=== PATIENT | male | born 1965 | race Caucasian/White ===

== ENCOUNTER 2020-07-26 11:40 | Inpatient (IN) | payer SELFPAY ==
[~2020-07-26] VITALS: Ht 182.9 cm; Wt 98.9 kg
[~2020-07-26 11:40] MED LIST: ASPIRIN81 MG PO; DIOVAN160 MG PO; HYDROCHLOROTHIA25 MG PO; LEVAQUIN500 MG PO; METOPROLOL TART25 MG PO; PROPRANOLOL HCL60 M1 PO
[2020-07-26 12:07] LABS: BASOPHILS # (AUTO) 0.1 (0.0-0.1); EOSINOPHILS # (AUTO) 0.2 (0.0-0.4); EOSINOPHILS % 2.5 % (0.0-6.0); HEMATOCRIT 43.5 % (38.2-49.6); HEMOGLOBIN 15.3 g/dL (14.0-18.0); LYMPHOCYTES # (AUTO) 2.6 (1.0-3.2); LYMPHOCYTES % 41.9 % (18.0-39.1); MEAN CORPUSCULAR HEMOGLOBIN 35.5 pg (28-32); MEAN CORPUSCULAR HGB CONC 35.2 g/dL (31-35); MEAN CORPUSCULAR VOLUME 100.9 fL (81-99); MONOCYTES % 15.9 % (4.4-11.3); NEUTROPHILS # (AUTO) 2.4 (2.1-6.9); NEUTROPHILS % 38.4 % (38.7-80.0); PLATELET COUNT 245 x10e3/uL (140-360); RED BLOOD COUNT 4.31 x10e6/uL (4.3-5.7); RED CELL DISTRIBUTION WIDTH 13.4 % (11.7-14.4)
[2020-07-26] MEDS: CLINDAMYCIN 600MG / 50ML 50 ML IV SCH ×2 (12:10→19:01)
[2020-07-26 13:07] LABS: ALANINE AMINOTRANSFERASE 21 IU/L (0-55); ALBUMIN 3.6 g/dL (3.5-5.0); ALBUMIN/GLOBULIN RATIO 1.2 (0.8-2.0); ALKALINE PHOSPHATASE 80 IU/L (40-150); ANION GAP 15.1 mmol/L (8-16); BLOOD UREA NITROGEN < 5 mg/dL (7-26); CALCIUM 8.3 mg/dL (8.4-10.2); CARBON DIOXIDE 23 mmol/L (22-29); CHLORIDE 97 mmol/L (98-107); CREATININE, SERUM 0.75 mg/dL (0.72-1.25); EST GLOMERULAR FILTRATION RATE > 60 ML/MIN (60-); GLUCOSE 60 mg/dL (74-118); POTASSIUM 4.1 mmol/L (3.5-5.1); SODIUM 131 mmol/L (136-145)
[2020-07-26 13:09] LABS: BUN/CREATININE RATIO 7 (6-25)
[2020-07-26] MEDS ORDERED: ONDANSETRON HCL INJ 2MG/ML 2ML 2 MG/ML VIAL IV PRN (13:15)
[2020-07-26] MEDS ORDERED: MORPHINE SULFATE INJ 2 MG/ML SYR IV PRN (13:15)
[2020-07-26] MEDS ORDERED: DEXTROSE 50% SYRINGE 50 ML IV PRN (13:30)
[2020-07-26] MEDS ORDERED: HYDRALAZINE HCL 20 MG/ML VIAL IV PRN (13:30)
[2020-07-26] MEDS ORDERED: BENZONATATE 100 MG CAP PO PRN (13:30)
[2020-07-26] MEDS ORDERED: DOCUSATE SODIUM 100 MG CAP PO PRN (13:30)
[2020-07-26] MEDS ORDERED: ACETAMINOPHEN 325 MG TAB PO PRN (13:30)
[2020-07-26] MEDS ORDERED: HYDROCODONE/APAP 5MG-325MG TAB PO PRN (13:30)
[2020-07-26] MEDS ORDERED: POTASSIUM CHLORIDE 20 MEQ TAB CR PO PRN (13:30)
[2020-07-26] MEDS ORDERED: DIPHENHYDRAMINE HCL 25 MG CAP PO PRN (13:30)
[2020-07-26] MEDS ORDERED: POLYETHYLENE GLYCOL 3350 17 GM PACK PO PRN (13:30)
[2020-07-26] MEDS ORDERED: CHLORASEPTIC SPRAY 177 ML BTL MM PRN (13:30)
[2020-07-26] MEDS: SODIUM CHLORIDE 0.9% 1000ML 1,000 ML IV SCH ×2 (14:18→21:16)
[2020-07-26] MEDS: KETOROLAC TROMETHAMINE 30 MG/ML VIAL IV SCH ×2 (14:18→18:56)
[2020-07-26 17:03] VITALS: BP 154/77
[2020-07-26 17:28] VITALS: BP 154/77
[2020-07-26 17:53] VITALS: BP 154/77
[2020-07-26] MEDS ORDERED: LISINOPRIL10 MG PO (17:57)
[2020-07-26] MEDS ORDERED: OXTELLAR XR300 MG PO (17:57)
[2020-07-26] MEDS ORDERED: LAMOTRIGINE100 MG PO (17:57)
[2020-07-26] MEDS: ENOXAPARIN SOD INJ 40 MG/0.4 ML SYR SC SCH (18:53)
[2020-07-26 20:00] VITALS: BP 144/75
[2020-07-26 21:00] VITALS: BP 144/75
[2020-07-26] MEDS ORDERED: MELATONIN 5 MG TABLET PO PRN (21:00)
[2020-07-26] MEDS: LAMOTRIGINE 100 MG TAB PO SCH (21:55)
[2020-07-27] VITALS (8 sets, daily range): BP systolic 144–185; BP diastolic 57–93
[2020-07-27] MEDS: CLINDAMYCIN 600MG / 50ML 50 ML IV SCH ×5 (00:15→23:45)
[2020-07-27] MEDS: KETOROLAC TROMETHAMINE 30 MG/ML VIAL IV SCH ×4 (00:15→18:10)
[2020-07-27 05:36] LABS: BASOPHILS # (AUTO) 0.1 (0.0-0.1); BASOPHILS % 1.4 % (0.0-1.0); EOSINOPHILS # (AUTO) 0.2 (0.0-0.4); HEMATOCRIT 37.4 % (38.2-49.6); HEMOGLOBIN 13.2 g/dL (14.0-18.0); LYMPHOCYTES # (AUTO) 2.4 (1.0-3.2); LYMPHOCYTES % 40.9 % (18.0-39.1); MEAN CORPUSCULAR HEMOGLOBIN 34.5 pg (28-32); MEAN CORPUSCULAR HGB CONC 35.3 g/dL (31-35); MEAN CORPUSCULAR VOLUME 97.7 fL (81-99); MONOCYTES # (AUTO) 0.9 (0.2-0.8); MONOCYTES % 15.2 % (4.4-11.3); NEUTROPHILS # (AUTO) 2.3 (2.1-6.9); NEUTROPHILS % 39.2 % (38.7-80.0); PLATELET COUNT 253 x10e3/uL (140-360); RED BLOOD COUNT 3.83 x10e6/uL (4.3-5.7); RED CELL DISTRIBUTION WIDTH 13.1 % (11.7-14.4)
[2020-07-27] MEDS: SODIUM CHLORIDE 0.9% 1000ML 1,000 ML IV SCH ×3 (05:53→21:15)
[2020-07-27 06:00] LABS: ALANINE AMINOTRANSFERASE 16 IU/L (0-55); ALBUMIN 3.1 g/dL (3.5-5.0); ALBUMIN/GLOBULIN RATIO 1.1 (0.8-2.0); ALKALINE PHOSPHATASE 69 IU/L (40-150); BLOOD UREA NITROGEN 6 mg/dL (7-26); BUN/CREATININE RATIO 8 (6-25); CARBON DIOXIDE 22 mmol/L (22-29); CHLORIDE 105 mmol/L (98-107); CREATININE, SERUM 0.74 mg/dL (0.72-1.25); EST GLOMERULAR FILTRATION RATE > 60 ML/MIN (60-); GLUCOSE 86 mg/dL (74-118); SODIUM 135 mmol/L (136-145)
[2020-07-27] MEDS: OXCARBAZEPINE PO SCH ×2 (09:00→18:09)
[2020-07-27] MEDS ORDERED: PROPRANOLOL HCL 60 MG PO SCH (09:00)
[2020-07-27] MEDS: PANTOPRAZOLE SOD 40 MG TABEC PO SCH (10:06)
[2020-07-27] MEDS: LAMOTRIGINE 100 MG TAB PO SCH ×2 (10:07→18:09)
[2020-07-27] MEDS: PROPRANOLOL HCL 60 MG ER CAP PO SCH (10:07)
[2020-07-27] MEDS ORDERED: LISINOPRIL 20 MG TAB PO NR (13:00)
[2020-07-27] MEDS ORDERED: LISINOPRIL 20 MG TAB ONE (13:08)
[2020-07-27] MEDS: ENOXAPARIN SOD INJ 40 MG/0.4 ML SYR SC SCH (18:09)
[2020-07-28] VITALS: BP 177/97
[2020-07-28 04:00] VITALS: BP 178/93
[2020-07-28] MEDS: SODIUM CHLORIDE 0.9% 1000ML 1,000 ML IV SCH (05:15)
[2020-07-28 08:08] VITALS: BP 171/95
[2020-07-28] MEDS: OXCARBAZEPINE PO SCH (08:33)
[2020-07-28] MEDS: PANTOPRAZOLE SOD 40 MG TABEC PO SCH (08:33)
[2020-07-28] MEDS: PROPRANOLOL HCL 60 MG ER CAP PO SCH (08:34)
[2020-07-28] MEDS: LAMOTRIGINE 100 MG TAB PO SCH (08:34)
[2020-07-28] MEDS ORDERED: LISINOPRIL 20 MG TAB PO SCH (09:00)
[2020-07-28 11:33] VITALS: BP 180/98
[2020-07-28] MEDS: CLINDAMYCIN 600MG / 50ML 50 ML IV SCH (11:44)
[2020-07-28] MEDS ORDERED: CLONIDINE HCL 0.3 MG TAB PO NR (13:00)
[2020-07-28] MEDS ORDERED: HYDRALAZINE HCL 10 MG TAB ONE (13:06)
[2020-07-28] MEDS ORDERED: CLINDAMYCIN HC150 MG PO (14:13)
[2020-07-28] MEDS ORDERED: CLEOCIN HCL300 MG PO (14:13)
== END 2020-07-28 14:35 | disposition home or self-care (01) | DRG 603 ==
LOC: ER 11:47 → ERHOLD 13:19 → MED/SURG2 16:45
PROVIDERS: ADMIT Internal Medicine; ATTEND Internal Medicine
DX: L03.116 Cellulitis of left lower limb (principal); I10 Essential (primary) hypertension; R25.1 Tremor, unspecified; R53.81 Other malaise; Z88.0 Allergy status to penicillin; Z88.8 Allergy status to other drugs, medicaments and biological substances; Z20.822 Contact with and (suspected) exposure to COVID-19
CPT/HCPCS: 36415; 80053; 85025; 93970; 99284; J1650; J1885; J7030; U0002

== ENCOUNTER 2020-11-08 19:53 | Emergency (ER) | payer SELFPAY ==
[~2020-11-08] VITALS: Ht 182.9 cm; Wt 98.9 kg
[~2020-11-08 19:53] MED LIST changes: +CLEOCIN HCL300 MG PO; +CLINDAMYCIN HC150 MG PO; +LAMOTRIGINE100 MG PO; +LISINOPRIL10 MG PO; +OXTELLAR XR300 MG PO
[2020-11-08 20:45] LABS: BASOPHILS # (AUTO) 0.1 (0.0-0.1); BASOPHILS % 0.6 % (0.0-1.0); EOSINOPHILS # (AUTO) 0.1 (0.0-0.4); EOSINOPHILS % 1.3 % (0.0-6.0); HEMATOCRIT 39.8 % (38.2-49.6); HEMOGLOBIN 14.7 g/dL (14.0-18.0); LYMPHOCYTES # (AUTO) 2.1 (1.0-3.2); LYMPHOCYTES % 26.8 % (18.0-39.1); MEAN CORPUSCULAR HEMOGLOBIN 34.8 pg (28-32); MEAN CORPUSCULAR HGB CONC 36.9 g/dL (31-35); MEAN CORPUSCULAR VOLUME 94.1 fL (81-99); MONOCYTES # (AUTO) 1.1 (0.2-0.8); MONOCYTES % 13.3 % (4.4-11.3); NEUTROPHILS # (AUTO) 4.6 (2.1-6.9); NEUTROPHILS % 57.5 % (38.7-80.0); PLATELET COUNT 206 x10e3/uL (140-360); RED BLOOD COUNT 4.23 x10e6/uL (4.3-5.7); RED CELL DISTRIBUTION WIDTH 12.5 % (11.7-14.4)
[2020-11-08 21:07] LABS: ALANINE AMINOTRANSFERASE 41 IU/L (0-55); ALBUMIN 3.5 g/dL (3.5-5.0); ALBUMIN/GLOBULIN RATIO 1.2 (0.8-2.0); ALKALINE PHOSPHATASE 105 IU/L (40-150); ANION GAP 15.3 mmol/L (8-16); BLOOD UREA NITROGEN < 5 mg/dL (7-26); CALCIUM 8.8 mg/dL (8.4-10.2); CARBON DIOXIDE 21 mmol/L (22-29); CHLORIDE 91 mmol/L (98-107); CREATININE, SERUM 0.72 mg/dL (0.72-1.25); EST GLOMERULAR FILTRATION RATE 114 ML/MIN (60-); GLUCOSE 94 mg/dL (74-118); POTASSIUM 4.3 mmol/L (3.5-5.1); SODIUM 123 mmol/L (136-145)
[2020-11-08 21:10] LABS: BUN/CREATININE RATIO 7 (6-25)
[2020-11-08] MEDS ORDERED: SODIUM CHLORIDE 0.9% 1000ML 1,000 ML IV SCH ×2 (21:45)
== END 2020-11-08 23:15 | disposition home or self-care (01) ==
LOC: ER 20:20
DX: R07.89 Other chest pain (principal); E87.1 Hypo-osmolality and hyponatremia; I10 Essential (primary) hypertension; I25.10 Atherosclerotic heart disease of native coronary artery without angina pectoris; G40.909 Epilepsy, unspecified, not intractable, without status epilepticus; I73.9 Peripheral vascular disease, unspecified
CPT/HCPCS: 36415; 71045; 80053; 84484; 85025; 99283; J7030

== ENCOUNTER 2021-04-06 18:16 | Inpatient (IN) | payer SELFPAY ==
[~2021-04-06] VITALS: Ht 182.9 cm; Wt 96.6 kg
[2021-04-06 18:58] LABS: BASOPHILS % 0.5 % (0.0-1.0); HEMATOCRIT 47.8 % (38.2-49.6); LYMPHOCYTES # (AUTO) 1.3 (1.0-3.2); LYMPHOCYTES % 16.1 % (18.0-39.1); MEAN CORPUSCULAR HEMOGLOBIN 34.7 pg (28-32); MEAN CORPUSCULAR HGB CONC 35.6 g/dL (31-35); MEAN CORPUSCULAR VOLUME 97.6 fL (81-99); MONOCYTES # (AUTO) 1.3 (0.2-0.8); MONOCYTES % 15.5 % (4.4-11.3); NEUTROPHILS # (AUTO) 5.5 (2.1-6.9); NEUTROPHILS % 67.4 % (38.7-80.0); PLATELET COUNT 185 x10e3/uL (140-360); RED CELL DISTRIBUTION WIDTH 12.7 % (11.7-14.4)
[2021-04-06 19:19] LABS: ALBUMIN 3.9 g/dL (3.5-5.0); ANION GAP 18.4 mmol/L (8-16); CALCIUM 8.9 mg/dL (8.4-10.2); CREATININE, SERUM 2.26 mg/dL (0.72-1.25); POTASSIUM 4.4 mmol/L (3.5-5.1)
[2021-04-06 19:24] LABS: B-TYPE NATRIURETIC PEPTIDE2 34.4 pg/mL (0-100)
[2021-04-06] MEDS ORDERED: SODIUM CHLORIDE 0.9% 1000ML 1,000 ML IV STA (19:24)
[2021-04-06] MEDS: LEVOFLOXACIN 750MG/D5W 150ML 150 ML IV SCH (19:30)
[2021-04-06] MEDS ORDERED: Morphine 4mg Syringe 4 MG/ML INJ IV PRN (20:15)
[2021-04-06] MEDS ORDERED: ONDANSETRON HCL INJ 2MG/ML 2ML 2 MG/ML VIAL IV PRN (20:15)
[2021-04-06] MEDS ORDERED: SODIUM CHLORIDE 0.9% 1000ML 1,000 ML IV SCH (20:15)
[2021-04-06] MEDS ORDERED: DIATRIZOATE MEGL/DIATRIZOA SOD 30 ML BTL PO ONE (20:31)
[2021-04-06 21:48] LABS: CLARITY,URINE SL CLOUDY (CLEAR); COLOR,URINE YELLOW (YELLOW); KETONES,URINE 1+ (NEGATIVE); LEUKOCYTE ESTERASE ,URINE NEGATIVE (NEGATIVE); NITRITE,URINE NEGATIVE (NEGATIVE); PROTEIN,URINE DIPSTICK 2+ (NEGATIVE); URINE UROBILINOGEN 0.2 mg/dL (0.2 - 1)
[2021-04-06 22:00] LABS: WBC,URINE (MAN) 21-50 /HPF (0-5)
[2021-04-06 22:01] LABS: BACTERIA,URINE MANY /HPF; EPITHELIAL CELLS,URINE FEW /LPF; RBC,URINE 21-50 /HPF (0-5)
[2021-04-07] MEDS ORDERED: ACETAMINOPHEN 325 MG TAB PO PRN (01:00)
[2021-04-07] MEDS ORDERED: MELATONIN 5 MG TABLET PO PRN (01:00)
[2021-04-07] MEDS ORDERED: DEXTROSE 50% SYRINGE 50 ML IV PRN (01:00)
[2021-04-07] MEDS ORDERED: POTASSIUM CHLORIDE 20 MEQ TAB CR PO PRN (01:00)
[2021-04-07] MEDS ORDERED: HYDRALAZINE HCL 20 MG/ML VIAL IV PRN (01:00)
[2021-04-07] MEDS ORDERED: DIPHENHYDRAMINE HCL 25 MG CAP PO PRN (01:00)
[2021-04-07] MEDS ORDERED: SIMETHICONE 80 MG CHEW PO PRN (01:00)
[2021-04-07] MEDS ORDERED: ONDANSETRON HCL INJ 2MG/ML 2ML 2 MG/ML VIAL IV PRN (01:00)
[2021-04-07] MEDS ORDERED: DOCUSATE SODIUM 100 MG CAP PO PRN (01:00)
[2021-04-07] MEDS ORDERED: LIDOCAINE 4% PATCH TP PRN (01:00)
[2021-04-07 01:56] LABS: CREATINE KINASE MB 2.3 ng/mL (0-5.0)
[2021-04-07 06:34] LABS: ALBUMIN 3.2 g/dL (3.5-5.0); ANION GAP 14.7 mmol/L (8-16); CALCIUM 8.3 mg/dL (8.4-10.2); CREATININE, SERUM 1.4 mg/dL (0.72-1.25); POTASSIUM 4.7 mmol/L (3.5-5.1)
[2021-04-07 06:36] LABS: CREATINE KINASE MB 1.4 ng/mL (0-5.0)
[2021-04-07] MEDS: PANTOPRAZOLE SOD 40 MG TABEC PO SCH (07:28)
[2021-04-07 07:59] LABS: BASOPHILS % 0.4 % (0.0-1.0); EOSINOPHILS % 0.1 % (0.0-6.0); LYMPHOCYTES # (AUTO) 1.8 (1.0-3.2); LYMPHOCYTES % 21.1 % (18.0-39.1); MEAN CORPUSCULAR HEMOGLOBIN 34.5 pg (28-32); MEAN CORPUSCULAR HGB CONC 35.7 g/dL (31-35); MEAN CORPUSCULAR VOLUME 96.6 fL (81-99); MONOCYTES # (AUTO) 1.1 (0.2-0.8); MONOCYTES % 12.9 % (4.4-11.3); NEUTROPHILS # (AUTO) 5.5 (2.1-6.9); PLATELET COUNT 185 x10e3/uL (140-360); RED BLOOD COUNT 4.35 x10e6/uL (4.3-5.7); RED CELL DISTRIBUTION WIDTH 12.4 % (11.7-14.4)
[2021-04-07 12:25] VITALS: BP 153/95
[2021-04-07] MEDS ORDERED: KEPPRA250 MG PO (12:33)
[2021-04-07 12:36] VITALS: BP 153/95
[2021-04-07 12:43] VITALS: BP 153/95
[2021-04-07] MEDS ORDERED: LEVETIRACETAM 500 MG PO SCH (13:45)
[2021-04-07] MEDS ORDERED: PROPRANOLOL HCL 40 MG PO SCH (13:45)
[2021-04-07] MEDS: BENZONATATE 100 MG CAP PO PRN ×2 (14:00→23:52)
[2021-04-07] MEDS: ASPIRIN 81 MG CHEW TAB PO SCH (14:00)
[2021-04-07] MEDS: LEVETIRACETAM 500 MG TAB PO SCH ×2 (14:00→21:52)
[2021-04-07] MEDS ORDERED: PROPRANOLOL HCL 40 MG TAB PO SCH (14:30)
[2021-04-07] MEDS ORDERED: LISINOPRIL 20 MG TAB PO SCH (14:30)
[2021-04-07] MEDS ORDERED: OXCARBAZEPINE 300 MG PO SCH (15:00)
[2021-04-07] MEDS: LISINOPRIL 20 MG TAB PO SCH (15:20)
[2021-04-07] MEDS: PROPRANOLOL HCL 40 MG TAB PO SCH ×2 (15:20→21:58)
[2021-04-07 16:08] VITALS: BP 123/76
[2021-04-07] MEDS: OXCARBAZEPINE 300 MG PO SCH ×2 (16:30→21:00)
[2021-04-07] MEDS: ENOXAPARIN SOD INJ 40 MG/0.4 ML SYR SC SCH (17:00)
[2021-04-07] MEDS: ALBUTEROL/IPRATROPIUM 3 ML NEB NEB PRN (18:48)
[2021-04-07 20:00] VITALS: BP 105/57
[2021-04-07 21:50] VITALS: BP 105/57
[2021-04-07] MEDS: LEVOFLOXACIN 750MG/D5W 150ML 150 ML IV SCH (21:51)
[2021-04-08] VITALS (8 sets, daily range): BP systolic 100–130; BP diastolic 55–85
[2021-04-08] MEDS ORDERED: SODIUM CHLORIDE 1 GM TAB PO ONE (01:30)
[2021-04-08 05:20] LABS: BASOPHILS % 0.6 % (0.0-1.0); EOSINOPHILS % 0.1 % (0.0-6.0); HEMATOCRIT 40.7 % (38.2-49.6); HEMOGLOBIN 14.5 g/dL (14.0-18.0); LYMPHOCYTES # (AUTO) 1.7 (1.0-3.2); LYMPHOCYTES % 22.9 % (18.0-39.1); MEAN CORPUSCULAR HEMOGLOBIN 34.5 pg (28-32); MEAN CORPUSCULAR HGB CONC 35.6 g/dL (31-35); MEAN CORPUSCULAR VOLUME 96.9 fL (81-99); MONOCYTES # (AUTO) 0.9 (0.2-0.8); MONOCYTES % 12.3 % (4.4-11.3); NEUTROPHILS # (AUTO) 4.6 (2.1-6.9); NEUTROPHILS % 63.7 % (38.7-80.0); PLATELET COUNT 100 x10e3/uL (140-360); RED CELL DISTRIBUTION WIDTH 12.4 % (11.7-14.4)
[2021-04-08 05:41] LABS: ANION GAP 14.8 mmol/L (8-16); CALCIUM 7.9 mg/dL (8.4-10.2); CREATININE, SERUM 0.81 mg/dL (0.72-1.25); MAGNESIUM 1.9 MG/DL (1.3-2.1); POTASSIUM 4.8 mmol/L (3.5-5.1)
[2021-04-08] MEDS: OXCARBAZEPINE 300 MG PO SCH ×2 (09:00→20:47)
[2021-04-08] MEDS: ASPIRIN 81 MG CHEW TAB PO SCH (09:15)
[2021-04-08] MEDS: PANTOPRAZOLE SOD 40 MG TABEC PO SCH (09:15)
[2021-04-08] MEDS: LISINOPRIL 20 MG TAB PO SCH (09:16)
[2021-04-08] MEDS: PROPRANOLOL HCL 40 MG TAB PO SCH ×2 (09:16→20:47)
[2021-04-08] MEDS: LEVETIRACETAM 500 MG TAB PO SCH ×2 (09:16→20:47)
[2021-04-08] MEDS: ENOXAPARIN SOD INJ 40 MG/0.4 ML SYR SC SCH (17:36)
[2021-04-08] MEDS: SODIUM CHLORIDE 1 GM TAB PO SCH (17:36)
[2021-04-08] MEDS: BENZONATATE 100 MG CAP PO PRN (17:38)
[2021-04-08] MEDS: LEVOFLOXACIN 500 MG TAB PO SCH (20:38)
[2021-04-09] VITALS (7 sets, daily range): BP systolic 123–154; BP diastolic 64–90
[2021-04-09 05:01] LABS: BASOPHILS % 0.4 % (0.0-1.0); EOSINOPHILS % 0.4 % (0.0-6.0); HEMATOCRIT 39.5 % (38.2-49.6); HEMOGLOBIN 13.7 g/dL (14.0-18.0); LYMPHOCYTES # (AUTO) 1.7 (1.0-3.2); LYMPHOCYTES % 23.4 % (18.0-39.1); MEAN CORPUSCULAR HEMOGLOBIN 34.3 pg (28-32); MEAN CORPUSCULAR HGB CONC 34.7 g/dL (31-35); MEAN CORPUSCULAR VOLUME 98.8 fL (81-99); MONOCYTES # (AUTO) 0.8 (0.2-0.8); MONOCYTES % 11.2 % (4.4-11.3); NEUTROPHILS # (AUTO) 4.6 (2.1-6.9); NEUTROPHILS % 64.2 % (38.7-80.0); PLATELET COUNT 174 x10e3/uL (140-360); RED CELL DISTRIBUTION WIDTH 12.2 % (11.7-14.4)
[2021-04-09 05:18] LABS: ANION GAP 13.9 mmol/L (8-16); CALCIUM 8.3 mg/dL (8.4-10.2); CREATININE, SERUM 0.68 mg/dL (0.72-1.25); POTASSIUM 3.9 mmol/L (3.5-5.1)
[2021-04-09] MEDS: PANTOPRAZOLE SOD 40 MG TABEC PO SCH (07:30)
[2021-04-09] MEDS: LEVETIRACETAM 500 MG TAB PO SCH ×2 (09:00→20:55)
[2021-04-09] MEDS: OXCARBAZEPINE 300 MG PO SCH ×2 (10:32→21:00)
[2021-04-09] MEDS: ASPIRIN 81 MG CHEW TAB PO SCH (10:32)
[2021-04-09] MEDS: SODIUM CHLORIDE 1 GM TAB PO SCH ×2 (10:34→17:00)
[2021-04-09] MEDS: PROPRANOLOL HCL 40 MG TAB PO SCH ×2 (10:34→20:55)
[2021-04-09] MEDS: LISINOPRIL 20 MG TAB PO SCH (10:34)
[2021-04-09] MEDS: ALBUTEROL/IPRATROPIUM 3 ML NEB NEB PRN ×2 (15:02→20:43)
[2021-04-09] MEDS ORDERED: METHYLPREDNISOLONE SOD SUCC 125 MG/2ML VIAL IV ONE (15:45)
[2021-04-09] MEDS ORDERED: SODIUM CHLORIDE 0.9% 50ML 50 ML ONE (16:14)
[2021-04-09] MEDS ORDERED: IOPAMIDOL 370 MG/ML 200 ML INFUS..BTL INJ ONE (16:14)
[2021-04-09] MEDS ORDERED: FUROSEMIDE INJ 10 MG/ML 2 ML VIAL IV ONE (16:15)
[2021-04-09] MEDS: ENOXAPARIN SOD INJ 40 MG/0.4 ML SYR SC SCH (17:00)
[2021-04-09] MEDS ORDERED: ONDANSETRON HCL 4 MG ORAL DISINTEGRATING TAB PO PRN (17:45)
[2021-04-09] MEDS: DOXYCYCLINE HYCLATE 100 MG in SODIUM CHLORIDE 0.9% 100 ML 100 ML IV SCH ×2 (18:00→20:54)
[2021-04-09] MEDS: LEVOFLOXACIN 500 MG TAB PO SCH (19:02)
[2021-04-09] MEDS: BENZONATATE 100 MG CAP PO PRN (19:31)
[2021-04-09] MEDS: METHYLPREDNISOLONE SOD SUCC 40 MG/ML VIAL 1ML IV SCH (20:55)
[2021-04-10] VITALS (7 sets, daily range): BP systolic 133–174; BP diastolic 74–89
[2021-04-10] MEDS: ALBUTEROL/IPRATROPIUM 3 ML NEB NEB PRN ×4 (00:40→19:55)
[2021-04-10 05:24] LABS: ANION GAP 16.1 mmol/L (8-16); CALCIUM 8.7 mg/dL (8.4-10.2); CREATININE, SERUM 0.64 mg/dL (0.72-1.25); POTASSIUM 4.1 mmol/L (3.5-5.1)
[2021-04-10] MEDS: DOXYCYCLINE HYCLATE 100 MG in SODIUM CHLORIDE 0.9% 100 ML 100 ML IV SCH (05:48)
[2021-04-10] MEDS: METHYLPREDNISOLONE SOD SUCC 40 MG/ML VIAL 1ML IV SCH ×2 (08:25→21:38)
[2021-04-10] MEDS: PANTOPRAZOLE SOD 40 MG TABEC PO SCH (08:25)
[2021-04-10] MEDS: OXCARBAZEPINE 300 MG PO SCH ×2 (08:25→21:38)
[2021-04-10] MEDS: ASPIRIN 81 MG CHEW TAB PO SCH (08:25)
[2021-04-10] MEDS: LEVETIRACETAM 500 MG TAB PO SCH ×2 (08:31→21:39)
[2021-04-10] MEDS: PROPRANOLOL HCL 40 MG TAB PO SCH ×2 (08:31→21:39)
[2021-04-10] MEDS: LISINOPRIL 20 MG TAB PO SCH (08:31)
[2021-04-10] MEDS: SODIUM CHLORIDE 1 GM TAB PO SCH ×2 (08:32→18:03)
[2021-04-10] MEDS: BENZONATATE 100 MG CAP PO PRN (14:42)
[2021-04-10] MEDS: DOXYCYCLINE HYCLATE 100 MG in SODIUM CHLORIDE 0.9% 100 ML IV SCH (18:03)
[2021-04-10] MEDS: ENOXAPARIN SOD INJ 40 MG/0.4 ML SYR SC SCH (18:03)
[2021-04-10] MEDS: LEVOFLOXACIN 500 MG TAB PO SCH (21:38)
[2021-04-11] MEDS: ALBUTEROL/IPRATROPIUM 3 ML NEB NEB PRN ×2 (00:10→07:13)
[2021-04-11 01:17] VITALS: BP 163/81
[2021-04-11] MEDS: DOXYCYCLINE HYCLATE 100 MG in SODIUM CHLORIDE 0.9% 100 ML IV SCH (05:24)
[2021-04-11 06:06] VITALS: BP 145/73
[2021-04-11] MEDS: PANTOPRAZOLE SOD 40 MG TABEC PO SCH (07:30)
[2021-04-11] MEDS: OXCARBAZEPINE 300 MG PO SCH (08:49)
[2021-04-11] MEDS: PROPRANOLOL HCL 40 MG TAB PO SCH (08:49)
[2021-04-11] MEDS: ASPIRIN 81 MG CHEW TAB PO SCH (08:49)
[2021-04-11] MEDS: LISINOPRIL 20 MG TAB PO SCH (08:49)
[2021-04-11] MEDS: LEVETIRACETAM 500 MG TAB PO SCH (08:49)
[2021-04-11] MEDS: METHYLPREDNISOLONE SOD SUCC 40 MG/ML VIAL 1ML IV SCH (08:49)
[2021-04-11] MEDS: SODIUM CHLORIDE 1 GM TAB PO SCH (08:50)
[2021-04-11 09:00] VITALS: BP 160/79
[2021-04-11 09:02] VITALS: BP 160/79
[2021-04-11] MEDS ORDERED: DOXYCYCLINE HY100 MG PO (11:52)
[2021-04-11] MEDS ORDERED: PREDNISONE50 MG PO (11:53)
[2021-04-11] MEDS ORDERED: LEVOFLOXACIN250 MG PO (11:53)
[2021-04-11] MEDS ORDERED: TESSALON PERLE100 MG PO (11:54)
[2021-04-11] MEDS ORDERED: DOXYCYCLINE HYCLATE TABLET 100 MG TAB PO SCH (18:00)
== END 2021-04-11 13:30 | disposition home or self-care (01) | DRG 190 ==
LOC: ER 18:53 → ERHOLD 20:07 → IMCU 04-07 11:31 → MED/SURG2 04-07 13:33
PROVIDERS: ADMIT Internal Medicine; ATTEND Internal Medicine
DX: J44.0 Chronic obstructive pulmonary disease with (acute) lower respiratory infection (principal); J18.9 Pneumonia, unspecified organism; N17.9 Acute kidney failure, unspecified; E87.1 Hypo-osmolality and hyponatremia; F17.210 Nicotine dependence, cigarettes, uncomplicated; G40.909 Epilepsy, unspecified, not intractable, without status epilepticus; I25.10 Atherosclerotic heart disease of native coronary artery without angina pectoris; Z20.822 Contact with and (suspected) exposure to COVID-19; I10 Essential (primary) hypertension
CPT/HCPCS: 36415; 71045; 71260; 74176; 80048; 80053; 81001; 82550; 82553; 83605; 83735; 83880; 83930; 84295; 84443; 84484; 85025; 87040; 93005; 94640; 94799; 99285; J1650; J1940; J2270; J2405; J2920; J2930; J7030; J7050; Q9967; U0002

== ENCOUNTER 2022-02-09 10:49 | Emergency (ER) | payer MEDICARE ==
[~2022-02-09] VITALS: Ht 182.9 cm; Wt 96.6 kg
[~2022-02-09 10:49] MED LIST changes: +DOXYCYCLINE HY100 MG PO; +KEPPRA250 MG PO; +LEVOFLOXACIN250 MG PO; +PREDNISONE50 MG PO; +TESSALON PERLE100 MG PO
[2022-02-09 11:30] LABS: BASOPHILS # (AUTO) 0.1 (0.0-0.1); BASOPHILS % 0.6 % (0.0-1.0); EOSINOPHILS # (AUTO) 0.1 (0.0-0.4); EOSINOPHILS % 0.9 % (0.0-6.0); HEMATOCRIT 38.7 % (38.2-49.6); HEMOGLOBIN 13.7 g/dL (14.0-18.0); LYMPHOCYTES # (AUTO) 1.7 (1.0-3.2); LYMPHOCYTES % 17.5 % (18.0-39.1); MEAN CORPUSCULAR HEMOGLOBIN 35.2 pg (28-32); MEAN CORPUSCULAR HGB CONC 35.4 g/dL (31-35); MEAN CORPUSCULAR VOLUME 99.5 fL (81-99); MONOCYTES % 10.3 % (4.4-11.3); NEUTROPHILS % 70.4 % (38.7-80.0); PLATELET COUNT 249 x10e3/uL (140-360); RED BLOOD COUNT 3.89 x10e6/uL (4.3-5.7); RED CELL DISTRIBUTION WIDTH 13.3 % (11.7-14.4)
[2022-02-09 11:40] LABS: INR 0.81
[2022-02-09 11:48] LABS: ALANINE AMINOTRANSFERASE 27 IU/L (0-55); ALBUMIN 3.3 g/dL (3.5-5.0); ALBUMIN/GLOBULIN RATIO 0.9 (0.8-2.0); ALKALINE PHOSPHATASE 90 IU/L (40-150); ANION GAP 18.2 mmol/L (8-16); BLOOD UREA NITROGEN < 5 mg/dL (7-26); CALCIUM 9.8 mg/dL (8.4-10.2); CARBON DIOXIDE 25 mmol/L (22-29); CHLORIDE 92 mmol/L (98-107); CREATINE KINASE 24 IU/L (30-200); CREATININE, SERUM 0.84 mg/dL (0.72-1.25); GLUCOSE 100 mg/dL (74-118); POTASSIUM 4.2 mmol/L (3.5-5.1); SODIUM 131 mmol/L (136-145)
[2022-02-09 11:49] LABS: BUN/CREATININE RATIO 6 (6-25)
[2022-02-09] MEDS: Morphine 4mg INJECTION 4 MG/ML INJ IV PRN (13:49)
[2022-02-09] MEDS: HEPARIN SOD (PORCINE) 5,000 UNIT/ML VIAL IV ONE (16:00)
[2022-02-09] MEDS ORDERED: HEPARIN 25,000 UNIT DRIP IV ONE (16:00)
[2022-02-09] MEDS: HEPARIN 25,000 UNIT 1,500 UNIT in DEXTROSE 5% 250ML 250 ML IV SCH (16:02)
[2022-02-09] MEDS ORDERED: SODIUM CHLORIDE 0.9% 100 ML ONE (19:42)
[2022-02-09] MEDS ORDERED: IOPAMIDOL 370 MG/ML 100 ML INFUS..BTL INJ ONE (19:42)
== END 2022-02-09 18:41 | disposition other institution (70) ==
LOC: ER 10:57
DX: M79.672 Pain in left foot (principal); I70.92 Chronic total occlusion of artery of the extremities; I10 Essential (primary) hypertension; I25.10 Atherosclerotic heart disease of native coronary artery without angina pectoris; I73.9 Peripheral vascular disease, unspecified; R25.1 Tremor, unspecified; G40.909 Epilepsy, unspecified, not intractable, without status epilepticus; F17.210 Nicotine dependence, cigarettes, uncomplicated
CPT/HCPCS: 0223U; 36415; 75635; 80053; 82550; 82553; 84484; 85025; 85610; 85730; 93926; 93971; 99284; J1644; J2270; J7050; Q9967